=== PATIENT | female | born 1985 | race Two or more races ===

== ENCOUNTER 2018-04-03 16:23 | Emergency (ER) | payer OTHER ==
[~2018-04-03] VITALS: Ht 162.6 cm; Wt 67.6 kg
[2018-04-03] MEDS ORDERED: DEXAMETHASONE SOD PHOS 10 MG/1 ML VIAL INJ ONE (17:45)
[2018-04-03] MEDS ORDERED: FAMOTIDINE 20 MG TAB PO ONE (17:45)
[2018-04-03 18:34] VITALS: BP 104/68
== END 2018-04-03 18:21 | disposition home or self-care (01) ==
LOC: ER 16:23
DX: L50.9 Urticaria, unspecified (principal)
CPT/HCPCS: 99282

== ENCOUNTER 2021-06-18 14:53 | Emergency (ER) | payer SELFPAY ==
[~2021-06-18] VITALS: Ht 162.6 cm; Wt 67.6 kg
[2021-06-18] MEDS ORDERED: DICYCLOMINE HCL 10 MG CAP PO STA (15:29)
[2021-06-18] MEDS ORDERED: DICYCLOMINE HCL10 MG PO (16:29)
[2021-06-18 17:04] LABS: CLARITY,URINE CLOUDY (CLEAR); COLOR,URINE YELLOW (YELLOW); KETONES,URINE NEGATIVE (NEGATIVE); LEUKOCYTE ESTERASE ,URINE 1+ (NEGATIVE); NITRITE,URINE NEGATIVE (NEGATIVE); PROTEIN,URINE DIPSTICK NEGATIVE (NEGATIVE); URINE UROBILINOGEN 0.2 mg/dL (0.2 - 1)
[2021-06-18] MEDS ORDERED: CEPHALEXIN500 MG PO (17:09)
[2021-06-18 17:10] LABS: BACTERIA,URINE FEW /HPF; EPITHELIAL CELLS,URINE FEW /LPF; RBC,URINE 0-5 /HPF (0-5); RENAL EPITHELIAL CELLS,URINE RARE; WBC,URINE (MAN) 21-50 /HPF (0-5)
== END 2021-06-18 17:30 | disposition home or self-care (01) ==
LOC: ER 15:31
DX: R14.1 Gas pain (principal); N39.0 Urinary tract infection, site not specified; E78.5 Hyperlipidemia, unspecified
CPT/HCPCS: 81001; 99282

== ENCOUNTER 2024-07-22 15:44 | Emergency (ER) | payer SELFPAY ==
[~2024-07-22] VITALS: Ht 160 cm; Wt 67.1 kg
[~2024-07-22 15:44] MED LIST: CEPHALEXIN500 MG PO; DICYCLOMINE HCL10 MG PO
[2024-07-22 16:18] VITALS: TEMP 98.4
[2024-07-22 16:41] LABS: BASOPHILS # (AUTO) 0.1 (0.0-0.1); BASOPHILS % 0.4 % (0.0-1.0); EOSINOPHILS # (AUTO) 0.1 (0.0-0.4); EOSINOPHILS % 0.9 % (0.0-6.0); HEMATOCRIT 38.7 % (34.2-44.1); HEMOGLOBIN 12.5 g/dL (12.0-16.0); LYMPHOCYTES # (AUTO) 2.7 (1.0-3.2); LYMPHOCYTES % 20.1 % (18.0-39.1); MEAN CORPUSCULAR HEMOGLOBIN 26.7 pg (28-32); MEAN CORPUSCULAR HGB CONC 32.3 g/dL (31-35); MEAN CORPUSCULAR VOLUME 82.7 fL (81-99); MONOCYTES # (AUTO) 0.7 (0.2-0.8); MONOCYTES % 5.2 % (4.4-11.3); NEUTROPHILS # (AUTO) 9.8 (2.1-6.9); NEUTROPHILS % 72.9 % (38.7-80.0); PLATELET COUNT 243 x10e3/uL (140-360); RED BLOOD COUNT 4.68 x10e6/uL (3.6-5.1); RED CELL DISTRIBUTION WIDTH 13.5 % (11.7-14.4); WHITE BLOOD COUNT 13.46 x10e3/uL (4.8-10.8)
[2024-07-22 16:57] LABS: ALBUMIN/GLOBULIN RATIO 1.3 (0.8-2.0); ANION GAP 12.7 mmol/L (8-16); BILIRUBIN,TOTAL 0.3 mg/dL (0.2-1.2); CALCIUM 9.4 mg/dL (8.4-10.2); CREATININE, SERUM 0.78 mg/dL (0.57-1.11); POTASSIUM 3.7 mmol/L (3.5-5.1); TOTAL PROTEIN 7.2 g/dL (6.5-8.1)
[2024-07-22 17:29] VITALS: PULSE 76; RESP 18; O2SAT 100
[2024-07-22] MEDS: FENTANYL CITRATE/PF 100MCG/2 ML INJ IV PRN (17:46)
== END 2024-07-22 18:39 | disposition home or self-care (01) ==
LOC: ER 17:35
DX: O20.0 Threatened abortion (principal); E78.5 Hyperlipidemia, unspecified
CPT/HCPCS: 36415; 76801; 76817; 80053; 84702; 85025; 86900; 99284; J3010

== ENCOUNTER 2025-04-14 14:30 | Emergency (ER) | payer OTHER ==
[~2025-04-14] VITALS: Ht 160 cm; Wt 68.0 kg
[2025-04-14] MEDS ORDERED: ONDANSETRON HCL INJ 2MG/ML 2ML 2 MG/ML VIAL IV PRN (15:15)
[2025-04-14 15:17] LABS: BASOPHILS % 0.3 % (0.0-1.0); EOSINOPHILS % 0.6 % (0.0-6.0); LYMPHOCYTES % 14.6 % (18.0-39.1); MONOCYTES % 4.7 % (4.4-11.3); NEUTROPHILS % 79.4 % (38.7-80.0); RED CELL DISTRIBUTION WIDTH 13.2 % (11.7-14.4)
[2025-04-14 15:44] LABS: EST GLOMERULAR FILTRATION RATE 111.0 ML/MIN (>=60)
[2025-04-14] MEDS: SODIUM CHLORIDE 0.9% 1000ML 1,000 ML IV STA (16:08)
[2025-04-14 18:39] LABS: LEUKOCYTE ESTERASE ,URINE NEGATIVE (NEGATIVE); PROTEIN,URINE DIPSTICK NEGATIVE (NEGATIVE); URINE UROBILINOGEN 0.2 mg/dL (0.2 - 1)
[2025-04-14 18:48] LABS: EPITHELIAL CELLS,URINE FEW /LPF; WBC,URINE (MAN) 0-5 /HPF (0-5)
[2025-04-14 21:06] VITALS: PULSE 78; RESP 16; TEMP 98.8; O2SAT 99
== END 2025-04-14 21:05 | disposition home or self-care (01) ==
LOC: ER 15:10
DX: O20.0 Threatened abortion (principal); O21.0 Mild hyperemesis gravidarum; R10.30 Lower abdominal pain, unspecified
CPT/HCPCS: 36415; 76801; 76817; 80053; 81001; 83690; 84702; 85025; 93976; 99284; J2405; J7030; 76815